=== PATIENT | female | born 1975 | race Caucasian/White ===

== ENCOUNTER → 2016-07-30 | Day surgery (SDC) | payer BC ==
[~2016-07-30] VITALS: Ht 160 cm; Wt 88.6 kg
[~2016-07-30] MED LIST: COLACE100 MG PO; DILAUDID 2MG(HYD2 MG PO; EXCEDRIN MIGRA1 EACH PO; FEOSOL325 MG PO; LOVENOX 4040 MG/0.4 SUB-Q; MOBIC15 MG PO; MUCINEX COLD-F177 ML PO; NORCO 5-325 TA1 EACH PO; OXYCONTIN20 MG PO; THERAGRAN-M1 TAB PO; TYLENOL325 MG PO
== END | disposition disaster alternative care site (69) ==
LOC: GPOC 07-23 09:00 → GEND 06:19 → GPOC 09:00
PROC: 0DB68ZX Excision of Stomach, Via Natural or Artificial Opening Endoscopic, Diagnostic (ICD-10-PCS; principal; 2016-07-30)
PROC: 0DBE8ZX Excision of Large Intestine, Via Natural or Artificial Opening Endoscopic, Diagnostic (ICD-10-PCS; 2016-07-30)
DX: Z12.11 Encounter for screening for malignant neoplasm of colon (principal); K52.9 Noninfective gastroenteritis and colitis, unspecified; K62.89 Other specified diseases of anus and rectum; K59.09 Other constipation; E66.9 Obesity, unspecified; Z88.0 Allergy status to penicillin; Z90.710 Acquired absence of both cervix and uterus; Z98.1 Arthrodesis status; Z98.890 Other specified postprocedural states
CPT/HCPCS: J7030